=== PATIENT | male | born 1940 | race Caucasian/White ===

== ENCOUNTER → 2020-01-20 12:56 | Outpatient (CLI) | payer MEDICARE, MEDICAID, SELFPAY ==
--- NOTE | 2020-01-20 13:05 | SP.MBSS_ITS ---
PRIMARY / SECONDARY DIAGNOSIS: dysphagia (R13.10) CURRENT DIET (SOLIDS): regular textures (IDDSI: 7) CURRENT DIET (LIQUIDS): thin liquid diets (IDDSI: 0) DENTITION: natural upper / lower dentition MENTAL STATUS: sufficient for participation RESPIRATORY STATUS: O2 via room air CURRENT FUNCTIONAL AMBULATION CATEGORY (FAC): 5 (ambulator- independent) REASON FOR REFERRAL: The Patient is an 79 year old male referred for a modified barium swallow (MBS) study to objectively assess the Patients oropharyngeal swallow function under fluoroscopy secondary to reported persistent globus sensation with occasional regurgitation during ingestion of solid textures (particularly breads) with occasional symptomology with thin liquids, stating that he has noticed he requires a substantial longer duration of ingestion over the past few years. 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 PREVIOUS MODIFIED BARIUM SWALLOW STUDY RESULTS: None ASSESSMENT PARAMETERS: The Patient participated in a Modified Barium Swallow (MBS) study on 01/20/2020. This study was recorded in the lateral view and images were sent to PACs for storage. Scoring was completed through each trial using the 8- point Penetration-Aspiration Scale (PAS) and summarized via the Modified Barium Swallow Impairment Profile (MBSImP) and the Bolus Residue Scale (BRS), with severity scoring through the Swallowing Performance Scale (SPS) and the Dysphagia Classification Scale (DCS), and recommended diet textures through the International Dysphagia Diet Standardisation Initiative (IDDSI) RESULTS OF THE EVALUATION: The Patient presents with mild to moderate oropharyngeal dysphagia (SPS: 4; DCS: D1) with shallow penetration and incomplete ejection during thin and nectar thickened liquid ingestion; abnormal esophageal phase findings likely indicating achalasia. OBJECTIVE ASSESSMENT OF SWALLOW FUNCTION (QUANTITATIVE ? PER TRIAL): PENETRATION / ASPIRATION SCALE (ROCK): 1 = does not enter airway 2 = enters airway/above vocal folds/ejected 3 = enters airway/above vocal folds/not ejected 4 = enters airway/contacts vocal folds/ejected 5 = enters airway/contacts vocal folds/not ejected 6 = enters airway/below vocal folds/ejected 7 = enters airway/below vocal folds/not ejected despite effort 8 = enters airway/below vocal folds/no effort PENETRATION / ASPIRATION SCALE (SCORE): Thin liquid - 5 mL tsp.: 1 Thin liquids via cup (single sip): 3 Thin liquids via cup (single sip): 3 Thin liquids via cup (sequential swallows): 3 Pudding via spoon: 1 Regular textured cookie: 1 Thin liquids via straw (chin tuck): 3 Thin liquids via straw (chin tuck): 3 Thin liquids via straw (chin tuck): 3 [place] thickened liquids via straw (single sip): 3 [place] thickened liquids via straw (single sip): 3 OBJECTIVE ASSESSMENT OF SWALLOW FUNCTION (QUANTITATIVE ? AGGREGATE): MODIFIED BARIUM SWALLOW IMPAIRMENT PROFILE (MBSImP) LABIAL SEAL: 0 (of 4) no labial escape TONGUE CONTROL: 2 (of 3) posterior escape < 50% BOLUS PREPARATION / MASTICATION: 0 (of 3) timely and efficient BOLUS TRANSPORT / LINGUAL MOTION: 0 (of 4) brisk tongue motion ORAL RESIDUE: 1 (of 4) trace residue lining oral structures INITIATION OF PHARYNGEAL SWALLOW: 3 (of 4) pyriforms SOFT PALATE ELEVATION: 0 (of 4) no bolus between soft palate & pharyngeal wall LARYNGEAL ELEVATION: 1 (of 3) partial superior movement / approximation ANTERIOR HYOID EXCURSION: 1 (of 2) partial movement EPIGLOTTIC MOVEMENT: 1 (of 2) partial inversion LARYNGEAL VESTIBULE CLOSURE: 1 (of 2) incomplete closure PHARYNGEAL STRIPPING WAVE: 1 (of 2) present / diminished PE SEGMENT OPENIN (of 3) partial distension / duration / obstruction TONGUE BASE RETRACTION: 2 (of 4) narrow column of contrast PHARYNGEAL RESIDUE: 2 (of 4) collection of residue ESOPHAGEAL BOLUS CLEARANCE: 2 (of 4) esophageal retention with retrograde flow below pharyngoesophageal segment (PES) BOLUS RESIDUE SCALE (BRS): BRS SCORE: 3 (of 6) BRS SCORE DESCRIPTION: residue on the posterior pharyngeal wall OBJECTIVE ASSESSMENT OF SWALLOW FUNCTION (SEVERITY GRADING): SWALLOWING PERFORMANCE SCALE (SPS): SPS CLASSIFICATION: 4 (mild to moderate) SPS CLASSIFICATION CHARACTERISTICS: mild-moderate impairment with need for therapeutic precautions: mild dysfunction in oral and pharyngeal stage; requires modified diet and therapeutic precautions to minimize aspiration risk DYSPHAGIA CLASSIFICATION SCALE (DCS): DCS CLASSIFICATION: D1 (mild) DCS CLASSIFICATION CHARACTERISTICS: mild stasis, without food consistency restriction OBJECTIVE ASSESSMENT OF SWALLOW FUNCTION (QUALITATIVE): ORAL PREPARATORY PHASE: competent bolus manipulation without fragmented swallowing (piecemeal deglutition); sufficient anterior oral containment during oral manipulation; preserved management of breathing / bolus formation. ORAL TRANSITIONAL PHASE: sufficient bolus transportation; no lingual discoordination (no tremor / undulations); intermittent piecemeal deglutition with eventual sufficient oral clearance; intermittent premature posterior bolus loss complicating pharyngeal phase synchrony, presenting as a contributor to pre-prandial penetration. PHARYNGEAL PHASE: varied pharyngeal phase dyssynchrony resulting in pre- prandial penetration of all liquid viscosities, unresponsive to posture / compensatory strategy implementation; reduced hyolaryngeal excursion with suboptimal laryngeal vestibule closure and insufficient laryngeal vestibule pressure generated to completely expel penetrated material; rather mild pharyngeal dysmotility most prominently with thicker viscosities with consolidation within the lower pharyngeal space attributed to a combination reduced posterior pharyngeal stripping wave action, and inconsistent and incomplete epiglottic deflection; appropriate velopharyngeal functioning; ESOPHAGEAL PHASE: abnormal esophageal phase findings, with copious retention and delayed clearance marked by abnormal peristalsis and intermittent tertiary contractions, with incomplete lower esophageal relaxation presenting as a ?birds beak? appearance at the distal esophagus / gastroesophageal junction suggesting achalasia; findings collaborate with reported symptomology. CONTRIBUTING / COMPLICATING FACTORS AND NOTABLE FINDINGS: noted smaller cervical osteophyte located at the C-5 C-6 level. RESPONSE TO STRATEGIES: all deficits somewhat managed via reduction in bolus rate / volume adjustments (beneficial for esophageal phase findings), though overall insufficient effects were noted from a variety of compensatory strategies implemented across studies, INTERVENTION RECOMMENDATIONS AND CONSIDERATIONS: Given the presence of esophageal phase abnormalities that closely resemble achalasia, I would suggest referring the patient for further workup via gastroenterology, with likely esophageal manometry indicated. INTERVENTION RECOMMENDATIONS AND CONSIDERATIONS: I would further consider additional outpatient speech-language intervention targeting diet texture management and training / implementation of recommended compensatory strategies; with consideration for training and implementation of recommended oropharyngeal strengthening exercises to facilitate improved laryngeal valving and pharyngeal motility (specifically targeting the effects of incomplete epiglottic deflection); with continual Patient education regarding dyspahagia and aspiration risks, and further education and non-surgical management considerations targeting achalasia to further augment any primary approaches advanced by the care team, as non- surgical management may not be indicated in isolation. I would further recommend providing additional information regarding the Patients past medical history prior to further workup, as it seems like there is potentially critical information to this case than he is unable to provide. POST ASSESSMENT EDUCATION: The results and recommendations were discussed with the Patient immediately following MBS completion, with the Patient verbalizing understanding and agreement with all recommendations and education provided, though follow up education sessions are likely indicated. DIET TEXTURE RECOMMENDATIONS: Will recommend a regular ? soft textured (IDDSI: 6), thin liquid diet (IDDSI: 0) diet RECOMMENDED COMPENSATORY STRATEGIES: Reduced bolus volume / rate of ingestion (paramount), increasing water intake with meals, avoiding eating near bedtime, avoiding foods that aggravate reflux, consider cutting tougher textures into bite sized pieces, seated upright at 90 degrees during PO intake, remain upright for 60 minutes post meal IMAGE COUNT: [id number] Sae Mckay M.A., [employer], CBIS MBSImP Certified, LSVT Certified [facility] Speech-Language Pathology Department Email: [email or web address]
== END ==
DX: R13.10 Dysphagia, unspecified (principal)
CPT/HCPCS: 74230; 92611

== ENCOUNTER → 2020-01-23 14:00 | Outpatient (CLI) | payer MEDICARE, MEDICAID, SELFPAY ==
[2013-08-30 21:21] VITALS: BMI 34.2
[2020-01-23 16:00] LABS: Anion Gap 5 (5-15); BUN 39 mg/dL (7-18); BUN/Creat Ratio 25.8 RATIO (10-20); Calcium,Total 8.8 mg/dL (8.5-10.1); Chloride 109 mmol/L (98-107); Creatinine, Serum 1.51 mg/dL (0.70-1.30); EST Glomerular Filtration Rate 48 mL/min (>60); Est Glom Filt Rate - Afr Amer 57 mL/min (>60); Glucose 142 mg/dL (74-106); Potassium 4.9 mmol/L (3.5-5.1); Sodium Level 140 mmol/L (136-145)
== END ==
PROVIDERS: Visit Provider Internal Medicine Nephrology
DX: E87.5 Hyperkalemia (principal)
CPT/HCPCS: 36415; 80048

== ENCOUNTER → 2020-01-30 09:32 | Outpatient (CLI) | payer MEDICARE, MEDICAID, SELFPAY ==
--- NOTE | 2020-01-30 09:34 | US_ITS ---
STUDY: RENAL ULTRASOUND - COMPLETE REASON FOR EXAM: Male, 79 years old. CKD 3 TECHNIQUE: Ultrasound evaluation of the kidneys was performed with real-time and static dennison-scale imaging. COMPARISON: None. FINDINGS: RIGHT KIDNEY: Normal location of the right kidney, which is normal in size. The right kidney measures 11.2 Jaret by 5 cm x 5 cm. There is a normal cortex of the right kidney. The renal cortex measures 1.2 cm. Multiple cysts are seen. The largest measures 1.5 cm x 1.4 cm x 1.4 cm. There are no right renal calculi. There is no right hydronephrosis. DISTAL RIGHT URETER: There is non-visualization of the distal right ureter. There is no demonstrated right ureterovesical junction calculus. There is no demonstrated right ureteral jet. LEFT KIDNEY: Normal location of the left kidney, which is normal in size. The left kidney measures 12.9 cm x 5.3 cm x 5.4 cm. There is a normal cortex of the left kidney. The renal cortex measures 1.4 cm. Multiple cysts are seen. The largest measures 7 cm x 7.3 cm x 6.9 cm There are no left renal calculi. There is no left hydronephrosis. DISTAL LEFT URETER: There is non-visualization of the distal left ureter. There is no demonstrated left ureterovesical junction calculus. There is no demonstrated left ureteral jet. AORTA: There is no elongation or tortuosity of the abdominal aorta. Aorta measures: Proximal cm. Middle cm. Distal cm. Aorta measure transversely: Proximal cm. Middle cm. Distal cm. There is no demonstrated aneurysm.. I.V.C.: The IVC is patent. BLADDER: The bladder as a trabeculated wall. US/Kidney and Bladder IMPRESSION: Multiple bilateral renal cysts as described. Trabeculation of the urinary bladder wall. Electronically Signed: Mario Alberto Ken, at 13:18 EDT , Service support ,
== END ==
PROVIDERS: Referring Provider Internal Medicine Nephrology; Visit Provider Internal Medicine Nephrology
DX: N18.3 Chronic kidney disease, stage 3 (moderate) (principal)
CPT/HCPCS: 76770

== ENCOUNTER 2020-02-19 10:55 | Day surgery (SDC) | payer MEDICARE, MEDICAID, SELFPAY ==
[2020-02-11 10:51] VITALS: BMI 31.3
--- NOTE | 2020-02-11 11:00 | HP_ITS ---
Intake Vital Signs 02/11/20 Height 5 ft 8 in 02/11/20 Weight: 206 lb 02/11/20 BMI 31.3 02/11/20 BP 131/72 H 02/11/20 Blood Pressure Location Rt brachial 02/11/20 Position Sitting 02/11/20 Respiration 18 02/11/20 Pulse 60 02/11/20 Pulse Source Monitor 02/11/20 Temp 98.2 F 02/11/20 Temp Source Temporal 02/11/20 Pulse Oximetry (%) 94 02/11/20 Oxygen Delivery Method room air Intake Visit Reasons: Esophagogastroduodenoscopy [employer] Planner Required: No Is patient in pain?: No Allergies No Known Allergies Allergy (Verified 02/11/20 10:52) Medications Escitalopram Oxalate [Lexapro] 20 mg PO DAILY 08/30/13 [History Confirmed 02/11/20] Hum Insulin NPH/Reg Insulin Hm [Humulin 70-30 Pen] 100 unit SQ 08/30/13 [History Confirmed 02/11/20] aspirin 81 mg tablet,delayed release 81 mg PO DAILY 02/11/20 [History Confirmed 02/11/20] losartan 50 mg tablet 50 mg PO DAILY tab 02/11/20 [History Confirmed 02/11/20] PFSH Medical History Hypertension (Chronic) Diabetes (Acute) Dysphagia (Acute) Hx of rheumatic fever (Acute) Surgical History Hx of tonsillectomy (Acute) Hx of colonoscopy (Acute) Family History Sister Arthritis Mother Arthritis Diabetes Father , AAA ruptured AAA (abdominal aortic aneurysm, ruptured) Social History (Updated 02/11/20 @ 11:[address] David Hendricks MD) Smoking Status: Current every day smoker tobacco type: cigarettes second hand exposure: Yes alcohol intake: never substance use type: does not use caffeine: Yes what type of physical activity do you participate in: none frequency: does not exercise seatbelt use: always HPI HPI Surgical H&P: Yes HPI: YUN GUTIERREZ, is a 79 M who presents to the office today for Evaluation of dysphagia. Patient has had problems with occasional regurgitation during indigestion of solid textures particularly bread. States that the back of his throat is always dry. Patient had a swallowing study which showed mild to moderate oropharyngeal dysphagia with swallow penetration and incomplete ejection during thin and nectar thickened liquids. It was abnormal esophageal phase findings likely indicating achalasia. ROS General General: No weight change, appetite, fatigue, colon cancer or breast cancer HEENT HEENT: Yes difficulty swallowing; no eye injury, eye surgery, swollen glands or hoarseness Endo Endocrine: Yes diabetes mellitus; no thyroid disease, thyroid cancer, Hair loss, heat intolerance or cold intolerance Skin Skin: No rash or changing moles Musc Musculoskeletal: Yes back problems and arthritis; no rheumatoid arthritis, gout or joint pain Cardio Cardiovascular: Yes high blood pressure; no murmur, pacemaker, heart disease, atrial fibrillation, heart attack, heart stent, palpitations, shortness of breat with exertion or chest pain Psych Psychiatric: No depression, anxiety or hearing voices Resp Respiratory: No shortness of breath, No sleep apnea, No cough, No COPD, No asthma, No emphysema, No wheezing Gastro Gastrointestinal: No abdominal pain, No nausea or vomiting, No diarrhea, No constipation, No blood in stool, No acid reflux, No hemorrhoids, No ulcers, No gallbladder problem, No black,tarry stools Guero Hematologic: No blood thinners, No blood disorders, No bleeding, No anemia, No blood clots Exam Const General: no acute distress, well developed, well hydrated Orientation: oriented to person, oriented to place, oriented to time [facility] Head: normocephalic, atraumatic Ears: external ears normal Mouth: moist mucous membranes Eyes Sclera: sclerae normal Pupils: normal by confrontation Neck Neck: no lymphadenopathy noted Neck mass: No Thyroid: thyroid normal, symmetrical Chest Chest palpation & inspection: normal inspection of the chest Resp Effort & Inspection: normal respiratory effort Auscultation: clear to auscultation bilaterally Percussion: percussion normal Cardio Rate: regular rate Rhythm: regular rhythm Heart Sounds: no murmurs GI Palpation: soft, no hepatosplenomegaly, no masses, nontender Rectal Exam: other Other: Rectal exam deferred. Extrem General: normal to inspection, no clubbing, cyanosis or edema Assessment & Plan Problems 1. Pharyngoesophageal dysphagia R13.14 Plan I have discussed the above with the patient. I have offered the patient esophagogastroduodenoscopy for evaluation. I have explained the risks/benefits of the procedure and described the procedure. I have discussed the risks with the patient, including but not limited to: infection, bleeding, perforation of the GI tract requiring emergency surgery, inability to complete the procedure, injury to any internal organs, complications of anesthesia, etc. - the patient understands and agrees to proceed. I have answered all the patient's questions to the patient's satisfaction and the patient has no further questions. The patient has been given instructions for the colon cleansing preparation. We will also obtain esophageal manometry after EGD is completed. Coding Level of Care Code Off vis,new,level 3 Diagnoses Pharyngoesophageal dysphagia R13.14 ??Dysphagia type: pharyngoesophageal phase COVID (Procedure Consent) Procedure Criteria Procedure Criteria: Yes Elective The surgeon/proceduralist and patient have discussed in detail the risk of exposure to and/or potential harm posed by the COVID-19 virus with having a surgery/procedure at this time versus the risk of? delaying the surgery/procedure. It is not possible to know either the risk of delaying the surgery or procedure or chance of getting an infection with perfect accuracy, but a joint decision was made between the patient and the surgeon/proceduralist ?to proceed at this time with the scheduled surgery/procedure as indicated on the consent form. 02/11/20 1117 <Electronically signed by David mantilla MD> Date _ David Hendricks MD I have re-examined the patient. There are no clinical changes since date of exam.
[2020-02-19] VITALS (9 sets, daily range): BP systolic 125–152; BP diastolic 59–76; PULSE 62–67; RESP 16–18; TEMP 36–36.8; O2SAT 93–99; BMI 30.7
[2020-02-19 11:45] LABS: Bedside Glucose 171 mg/dL (70-110)
--- NOTE | 2020-02-19 12:15 | IMM_PTH ---
PATIENT: YUN GUTIERREZ LOC: EN U#:[id number] AGE/SX: 79/M ROOM: RE02/19/[address]: Dr. David Hendricks MD : 1940 BED: DIS: 02/19/2020 SPEC #: [id number] RECD: 02/20/20 09:45 STATUS: JANIS REQ #: [id number] TAY: 02/19/20 12:[address]: David Hendricks DEPT: IMMUNOHISTOCHEMISTRY RECD BY: Monisha Baumann ENTERED: 02/20/20 09:46 SP TYPE: IMMUNO OTHR DR: Tanya Pollack, ZOO KEEPER-C [facility] Tissues: B - Stomach, NOS Procedures: H Pylori (initial) PHYSICIAN & INSTITUTION [place] [address] SPECIMEN INFORMATION: Tissue Source: B - Antral biopsy Clinical Info: Dysphagia Specimen Number: [id number] CPT code: 57851 METHODOLOGY: Deparaffinized sections of prefer/formalin-fixed tissue or PAP/DQ stained slides are incubated with monoclonal/polyclonal antibodies/oligonucleotide probes. Localization is made via biotin free immunoperoxidase method. Appropriate controls are performed and reacted as expected. Results on target cell population are indicated in the following table: RESULTS: ANTIBODY / CLONE RESULT Block B H Pylori (polyclonal) negative These tests were developed and their performance characteristics determined by [facility]. They may not have been cleared or approved by the U.S. Food and Drug Administration. The FDA has determined that such clearance or approval is not necessary. INTERPRETATION: B. Antral biopsy: Negative for Helicobacter pylori organisms. AM:elly 02/21/20
--- NOTE | 2020-02-19 12:15 | EGD_PTH ---
PATIENT: YUN GUTIERREZ LOC: EN U#:[id number] AGE/SX: 79/M ROOM: RE02/19/[address]: Dr. David Hendricks MD : 1940 BED: DIS: 02/19/2020 SPEC #: [id number] RECD: 02/19/20 15:16 STATUS: JANIS ADAM #: [id number] TAY: 02/19/20 12:[address]: David Hendricks DEPT: SURGICAL PATHOLOGY RECD BY: James Dolan ENTERED: 02/20/20 09:33 SP TYPE: EGD BIOPSY OT DR: Tanya Pollack, USER INTERFACE DEVELOPER-C [facility] Tissues: A - Duodenum, NOS B - Gastric mucous membrane Procedures: Surgery Specimen Level IV HEADER OPERATION: EGD ([facility] [place]) PRE-OP DIAGNOSIS: Dysphagia TISSUE SUBMITTED: A - Duodenal biopsy, B - Antral biopsy for H. pylori and pathology MICROSCOPIC DIAGNOSIS A. Duodenum, biopsy: Fragments of benign superficial glandular mucosa. No evidence of inflammation. B. Gastric antrum, biopsy: Mild chronic gastritis. See comment. AM:elly 02/21/20 COMMENT B. The results of immunohistochemistry for Helicobacter pylori will be reported separately ([id number]). MICROSCOPIC DESCRIPTION Slides are reviewed. GROSS DESCRIPTION A - Received in fixative is one container labeled with the patient's name and designated duodenum biopsy. The specimen consists of one irregular fragment of light mckee soft tissue that measures 0.2 x 0.1 x 0.1 cm. The specimen is totally submitted in one cassette. B - Received in fixative is one container labeled with the patient's name and designated antral biopsy. The specimen consists of one irregular fragment of light mckee soft tissue that measures 0.4 x 0.3 x 0.1 cm. The specimen is totally submitted in one cassette. / SJ:elly 02/20/20 TC:3 CPT: 79516 x2
[2020-02-19] MEDS: Lactated Ringers 1,000 ML 100 ML IV (12:26)
--- NOTE | 2020-02-19 12:53 | OP.CCLET_ITS ---
02/19/2020 [facility] Re : Upper GI endoscopy procedure for Son Lundy [facility] This procedure was performed on Wednesday, February 19, 2020. My impressions and recommendations are as follows: Impressions : - Tortuous esophagus. - Gastritis. Biopsied. - Duodenitis. Biopsied. Recommendations : - Await pathology results. - Repeat upper endoscopy (date not yet determined) for surveillance. - Return to my office in 1 week. - Continue present medications. My findings are described in the full procedure note, which is enclosed. If I can be of further assistance, please feel free to contact me at Doctor phone number(s): , Fax: [phone], Work: . Sincerely, MD David Menon MD 02/19/2020 12:52:42 PM This report has been signed electronically.
--- NOTE | 2020-02-19 12:53 | OP.EGD_ITS ---
Patient Name: Son Lundy Procedure Date: 02/19/2020 12:10 PM Date of : 1940 Age: 79 Procedure: Upper GI endoscopy Indications: Pharyngeal phase dysphagia Providers: David Hendricks MD Referring MD: L[facility] Santana [facility] Medicines: See the Anesthesia note for documentation of the administered medications Patient Profile: This is an 79 year old male. Refer to note in patient chart for documentation of history and physical. Complications: No immediate complications. Procedure: Pre-Anesthesia Assessment: - Prior to the procedure, a History and Physical was performed, and patient medications and allergies were reviewed. The patient's tolerance of previous anesthesia was also reviewed. The risks and benefits of the procedure and the sedation options and risks were discussed with the patient. All questions were answered, and informed consent was obtained. Prior Anticoagulants: The patient has taken aspirin, last dose was 7 days prior to procedure. ASA Grade Assessment: III - A patient with severe systemic disease. After reviewing the risks and benefits, the patient was deemed in satisfactory condition to undergo the procedure. After obtaining informed consent, the endoscope was passed under direct vision. Throughout the procedure, the patient's blood pressure, pulse, and oxygen saturations were monitored continuously. The gastroscope was introduced through the mouth, and advanced to the third part of duodenum. The upper GI endoscopy was accomplished without difficulty. The patient tolerated the procedure well. Scope In: 12:26:42 PM Scope Out: 12:34:31 PM Total Procedure Duration Time 0 hours 7 minutes 49 seconds Findings: The examined esophagus was mildly tortuous. No biopsies or other specimens were collected for this exam. Diffuse mild inflammation characterized by congestion (edema) and erythema was found in the entire examined stomach. Biopsies were taken with a cold forceps for Helicobacter pylori testing. Localized mild inflammation characterized by erythema and friability was found in the duodenal bulb. Biopsies were taken with a cold forceps for histology. Impression: - Tortuous esophagus. - Gastritis. Biopsied. - Duodenitis. Biopsied. Recommendation: - Await pathology results. - Repeat upper endoscopy (date not yet determined) for surveillance. - Return to my office in 1 week. - Continue present medications. Procedure Code(s): --- Professional --- 16013, Esophagogastroduodenoscopy, flexible, transoral; with biopsy, single or multiple Diagnosis Code(s): --- Professional --- Q39.9, Congenital malformation of esophagus, unspecified K29.70, Gastritis, unspecified, without bleeding K29.80, Duodenitis without bleeding R13.13, Dysphagia, pharyngeal phase CPT copyright 2017 [employer]. All rights reserved. The codes documented in this report are preliminary and upon photoengraving retoucher review may be revised to meet current compliance requirements. MD David Menon MD 02/19/2020 12:52:42 PM This report has been signed electronically. Number of Addenda: 0 Note Initiated On: 02/19/2020 12:10 PM
== END 2020-02-19 14:07 | disposition home or self-care (01) ==
LOC: EN 10:57 → AC 11:48
PROVIDERS: Anesthesiology; Visit Provider Surgery
PROC: 0DJ08ZZ Inspection of Upper Intestinal Tract, Via Natural or Artificial Opening Endoscopic (ICD-10-PCS; CPT 43235; principal; 2020-02-19 12:10)
DX: K29.50 Unspecified chronic gastritis without bleeding (principal); R13.13 Dysphagia, pharyngeal phase; R13.12 Dysphagia, oropharyngeal phase; R13.14 Dysphagia, pharyngoesophageal phase; Q39.9 Congenital malformation of esophagus, unspecified; K29.70 Gastritis, unspecified, without bleeding; K29.80 Duodenitis without bleeding; Z79.4 Long term (current) use of insulin; Z79.82 Long term (current) use of aspirin; I10 Essential (primary) hypertension; F17.210 Nicotine dependence, cigarettes, uncomplicated; Z11.59 Encounter for screening for other viral diseases
CPT/HCPCS: 43239; 82962; 87635; 88305; 88342; G2023; J7120; J2405; U0003

== ENCOUNTER 2020-02-20 09:54 | Day surgery (SDC) | payer MEDICARE, MEDICAID, SELFPAY ==
[2020-02-11 10:51] VITALS: BMI 31.3
--- NOTE | 2020-02-11 11:00 | HP_ITS ---
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 Is patient in pain?: No Allergies No Known Allergies Allergy (Verified 02/11/20 10:52) Medications Escitalopram Oxalate [Lexapro] 20 mg PO DAILY 08/30/13 [History Confirmed 02/11/20] Hum Insulin NPH/Reg Insulin Hm [Humulin 70-30 Pen] 100 unit SQ 08/30/13 [History Confirmed 02/11/20] aspirin 81 mg tablet,delayed release 81 mg PO DAILY 02/11/20 [History Confirmed 02/11/20] losartan 50 mg tablet 50 mg PO DAILY tab 02/11/20 [History Confirmed 02/11/20] PFSH Medical History Hypertension (Chronic) Diabetes (Acute) Dysphagia (Acute) Hx of rheumatic fever (Acute) Surgical History Hx of tonsillectomy (Acute) Hx of colonoscopy (Acute) Family History Sister Arthritis Mother Arthritis Diabetes Father , AAA ruptured AAA (abdominal aortic aneurysm, ruptured) Social History (Updated 02/11/20 @ 11:[address] David Hendricks MD) Smoking Status: Current every day smoker tobacco type: cigarettes second hand exposure: Yes alcohol intake: never substance use type: does not use caffeine: Yes what type of physical activity do you participate in: none frequency: does not exercise seatbelt use: always HPI HPI HPI: YUN GUTIERREZ, is a 79 M who presents to the office today for HPI HPI Surgical H&P: Yes HPI: YUN GUTIERREZ, is a 79 M who presents to the office today for Evaluation of dysphagia. Patient has had problems with occasional regurgitation during indigestion of solid textures particularly bread. States that the back of his throat is always dry. Patient had a swallowing study which showed mild to moderate oropharyngeal dysphagia with swallow penetration and incomplete ejection during thin and nectar thickened liquids. It was abnormal esophageal phase findings likely indicating achalasia. ROS General General: No weight change, appetite, fatigue, colon cancer or breast cancer HEENT HEENT: Yes difficulty swallowing; no eye injury, eye surgery, swollen glands or hoarseness Endo Endocrine: Yes diabetes mellitus; no thyroid disease, thyroid cancer, Hair loss, heat intolerance or cold intolerance Skin Skin: No rash or changing moles Musc Musculoskeletal: Yes back problems and arthritis; no rheumatoid arthritis, gout or joint pain Cardio Cardiovascular: Yes high blood pressure; no murmur, pacemaker, heart disease, atrial fibrillation, heart attack, heart stent, palpitations, shortness of breat with exertion or chest pain Psych Psychiatric: No depression, anxiety or hearing voices Resp Respiratory: No shortness of breath, No sleep apnea, No cough, No COPD, No asthma, No emphysema, No wheezing Gastro Gastrointestinal: No abdominal pain, No nausea or vomiting, No diarrhea, No constipation, No blood in stool, No acid reflux, No hemorrhoids, No ulcers, No gallbladder problem, No black,tarry stools Guero Hematologic: No blood thinners, No blood disorders, No bleeding, No anemia, No blood clots Exam Const General: no acute distress, well developed, well hydrated Orientation: oriented to person, oriented to place, oriented to time [facility] Head: normocephalic, atraumatic Ears: external ears normal Mouth: moist mucous membranes Eyes Sclera: sclerae normal Pupils: normal by confrontation Neck Neck: no lymphadenopathy noted Neck mass: No Thyroid: thyroid normal, symmetrical Chest Chest palpation & inspection: normal inspection of the chest Resp Effort & Inspection: normal respiratory effort Auscultation: clear to auscultation bilaterally Percussion: percussion normal Cardio Rate: regular rate Rhythm: regular rhythm Heart Sounds: no murmurs GI Palpation: soft, no hepatosplenomegaly, no masses, nontender Rectal Exam: other Other: Rectal exam deferred. Extrem General: normal to inspection, no clubbing, cyanosis or edema Assessment & Plan Problems 1. Pharyngoesophageal dysphagia R13.14 Plan I have discussed the above with the patient. I have offered the patient esophagogastroduodenoscopy for evaluation. I have explained the risks/benefits of the procedure and described the procedure. I have discussed the risks with the patient, including but not limited to: infection, bleeding, perforation of the GI tract requiring emergency surgery, inability to complete the procedure, injury to any internal organs, complications of anesthesia, etc. - the patient understands and agrees to proceed. I have answered all the patient's questions to the patient's satisfaction and the patient has no further questions. The patient has been given instructions for the colon cleansing preparation. We will also obtain esophageal manometry after EGD is completed. Coding Level of Care Code Off vis,new,level 3 Diagnoses Pharyngoesophageal dysphagia R13.14 ??Dysphagia type: pharyngoesophageal phase COVID (Procedure Consent) Procedure Criteria Procedure Criteria: Yes Elective The surgeon/proceduralist and patient have discussed in detail the risk of exposure to and/or potential harm posed by the COVID-19 virus with having a surgery/procedure at this time versus the risk of? delaying the surgery/procedure. It is not possible to know either the risk of delaying the surgery or procedure or chance of getting an infection with perfect accuracy, but a joint decision was made between the patient and the surgeon/proceduralist ?to proceed at this time with the scheduled surgery/procedure as indicated on the consent form. 02/11/20 1117 <Electronically signed by David mantilla MD> Date _ David Hendricks MD
[2020-02-19 11:31] VITALS: BMI 30.7
[2020-02-20 10:11] VITALS: BP 131/74; PULSE 65; RESP 18; TEMP 36.8; O2SAT 94
== END 2020-02-20 10:53 | disposition home or self-care (01) ==
LOC: EN 09:55
PROVIDERS: Surgery; Referring Provider Nurse Practitioner Family; Visit Provider Surgery
PROC: F00ZJWZ Instrumental Swallowing and Oral Function Assessment using Swallowing Equipment (ICD-10-PCS; CPT 43235; principal; 2020-02-20 09:55)
DX: R13.12 Dysphagia, oropharyngeal phase (principal); R13.14 Dysphagia, pharyngoesophageal phase; F17.210 Nicotine dependence, cigarettes, uncomplicated; Z79.4 Long term (current) use of insulin; Z79.82 Long term (current) use of aspirin; I10 Essential (primary) hypertension; E11.9 Type 2 diabetes mellitus without complications
CPT/HCPCS: 91010

== ENCOUNTER → 2020-03-25 08:55 | Outpatient (CLI) | payer MEDICARE, MEDICAID, SELFPAY ==
[2020-03-09 09:33] VITALS: BMI 30.7
[2020-03-25 09:41] LABS: Absolute Lymphocyte Count 1.52 X10^3/uL (0.83-4.51); Absolute Neutrophil Count 7.2 X10^3/uL (2.0-7.7); Basophil# 0.07 X10^3/uL; Basophil% 0.7 % (0-1); Eosinophil# 0.52 X10^3/uL; Eosinophils% 4.9 % (0-5); Hematocrit 46.5 % (40-54); Hemoglobin 14.4 g/dL (13.0-16.5); Lymphocyte # 1.52 X10^3/ul (4.0); Lymphocyte % 14.2 % (19-41); Mean Corpuscular Hgb 28.2 pg (27.0-32.0); Mean Corpuscular Volume 91.2 fL (80-94); Mean Platelet Vol. 10.4 fl (6.2-12.0); Monocyte# 1.36 X10^3/uL; Monocyte% 12.7 % (0-10); NRBC Flagged by Analyzer 0 % (0-5); Neutrophil # 7.19 X10^3/uL (2.7-7.7); Neutrophil % 67.3 % (47-70); Platelet Count 283 K/mm3 (150-450); RBC Distribution Width CV 17.2 % (11.6-14.6); RBC Distribution Width SD 58.2 fl (35.1-43.9); White Blood Count 10.7 K/mm3 (4.4-11.0)
[2020-03-25 10:01] LABS: Hemoglobin A1c 8.5 % (3.8-5.6)
[2020-03-25 10:15] LABS: ALB/GLOB Ratio 0.7 RATIO (0.9-2.4); AST(SGOT) 10 U/L (15-37); Alanine Aminotransfer ALT/SGPT 14 U/L (16-61); Albumin, Serum 3.1 g/dL (3.2-5.0); Alkaline Phosphatase 95 U/L (45-117); Anion Gap 2 (5-15); BUN 33 mg/dL (7-18); BUN/Creat Ratio 24.4 RATIO (10-20); Calcium,Total 8.8 mg/dL (8.5-10.1); Chloride 105 mmol/L (98-107); Cholesterol 109 mg/dL (200); Creatinine, Serum 1.35 mg/dL (0.70-1.30); EST Glomerular Filtration Rate 54 mL/min (>60); Est Glom Filt Rate - Afr Amer 65 mL/min (>60); Globulin 4.3 g/dL (2.2-4.2); Glucose 153 mg/dL (74-106); High Density Lipoprotein 33 mg/dL; Potassium 4.8 mmol/L (3.5-5.1); Protein, Total 7.4 g/dL (6.4-8.2); Sodium Level 141 mmol/L (136-145); Triglycerides 101 mg/dL; Very Low Density Lipoprotein 20 mg/dL (5-40); Vitamin D,25 Hydroxy 37.7 ng/mL
== END ==
PROVIDERS: Referring Provider Nurse Practitioner Family; Visit Provider Nurse Practitioner Family
DX: E11.9 Type 2 diabetes mellitus without complications (principal); E78.2 Mixed hyperlipidemia; E55.9 Vitamin D deficiency, unspecified; I10 Essential (primary) hypertension
CPT/HCPCS: 36415; 80053; 80061; 82306; 83036; 85025

== ENCOUNTER → 2020-06-30 08:40 | Outpatient (CLI) | payer MEDICARE, MEDICAID, SELFPAY ==
[2020-03-09 09:33] VITALS: BMI 30.7
[2020-06-30 09:37] LABS: Absolute Lymphocyte Count 1.54 X10^3/uL (0.83-4.51); Absolute Neutrophil Count 6.2 X10^3/uL (2.0-7.7); Basophil# 0.06 X10^3/uL; Basophil% 0.6 % (0-1); Eosinophil# 0.46 X10^3/uL; Eosinophils% 4.9 % (0-5); Hematocrit 50.1 % (40-54); Hemoglobin 15.6 g/dL (13.0-16.5); Lymphocyte # 1.54 X10^3/ul (4.0); Lymphocyte % 16.4 % (19-41); Mean Corp Hgb Conc 31.1 g/dL (32-36); Mean Corpuscular Hgb 28.4 pg (27.0-32.0); Mean Corpuscular Volume 91.1 fL (80-94); Mean Platelet Vol. 9.9 fl (6.2-12.0); Monocyte# 1.08 X10^3/uL; Monocyte% 11.5 % (0-10); NRBC Flagged by Analyzer 0 % (0-5); Neutrophil # 6.22 X10^3/uL (2.7-7.7); Neutrophil % 66.3 % (47-70); Platelet Count 290 K/mm3 (150-450); RBC Distribution Width CV 16.6 % (11.6-14.6); RBC Distribution Width SD 55.2 fl (35.1-43.9); White Blood Count 9.4 K/mm3 (4.4-11.0)
[2020-06-30 10:00] LABS: ALB/GLOB Ratio 0.7 RATIO (0.9-2.4); AST(SGOT) 9 U/L (15-37); Alanine Aminotransfer ALT/SGPT 20 U/L (16-61); Albumin, Serum 3.4 g/dL (3.2-5.0); Alkaline Phosphatase 118 U/L (45-117); Anion Gap 2 (5-15); BUN 42 mg/dL (7-18); BUN/Creat Ratio 30.9 RATIO (10-20); Calcium,Total 9.4 mg/dL (8.5-10.1); Chloride 106 mmol/L (98-107); Cholesterol 131 mg/dL (200); Creatinine, Serum 1.36 mg/dL (0.70-1.30); EST Glomerular Filtration Rate 54 mL/min (>60); Est Glom Filt Rate - Afr Amer 65 mL/min (>60); Globulin 4.8 g/dL (2.2-4.2); Glucose 129 mg/dL (74-106); High Density Lipoprotein 38 mg/dL; Potassium 4.9 mmol/L (3.5-5.1); Protein, Total 8.2 g/dL (6.4-8.2); Sodium Level 140 mmol/L (136-145); Triglycerides 117 mg/dL; Very Low Density Lipoprotein 23 mg/dL (5-40)
== END ==
DX: E13.21 Other specified diabetes mellitus with diabetic nephropathy (principal); I10 Essential (primary) hypertension; E78.2 Mixed hyperlipidemia; E55.9 Vitamin D deficiency, unspecified; D50.9 Iron deficiency anemia, unspecified
CPT/HCPCS: 36415; 80053; 80061; 82306; 83036; 85025

== ENCOUNTER → 2020-10-22 10:43 | Outpatient (CLI) | payer MEDICARE, MEDICAID, SELFPAY ==
[2020-03-09 09:33] VITALS: BMI 30.7
[2020-10-22 12:22] LABS: Erythrocyte Sedimentation Rate 43 mm/hr (0-20)
[2020-10-22 12:24] LABS: Protein:Creat Ratio 1913 mg/g CRE (0-200)
[2020-10-22 12:32] LABS: Hemoglobin A1c 6.6 % (3.8-5.6)
[2020-10-22 12:39] LABS: PTHIN 207.8 pg/mL (18.4-80.1)
[2020-10-22 12:49] LABS: Vitamin D,25 Hydroxy 38.1 ng/mL
[2020-10-22 12:51] LABS: ALB/GLOB Ratio 0.7 RATIO (0.9-2.4); AST(SGOT) 18 U/L (15-37); Alanine Aminotransfer ALT/SGPT 18 U/L (16-61); Albumin, Serum 3.4 g/dL (3.2-5.0); Alkaline Phosphatase 109 U/L (45-117); Anion Gap 5 (5-15); BUN 32 mg/dL (7-18); BUN/Creat Ratio 21.1 RATIO (10-20); CPK Total, Creatine Kinase 61 U/L (39-308); Chloride 103 mmol/L (98-107); Creatinine, Serum 1.52 mg/dL (0.70-1.30); EST Glomerular Filtration Rate 47 mL/min (>60); Est Glom Filt Rate - Afr Amer 57 mL/min (>60); Globulin 4.6 g/dL (2.2-4.2); Glucose 108 mg/dL (74-106); Phosphorus 3.6 mg/dL (2.5-4.9); Potassium 4.6 mmol/L (3.5-5.1); Sodium Level 141 mmol/L (136-145)
== END ==
PROVIDERS: Referring Provider Family Medicine; Visit Provider Internal Medicine Nephrology
DX: E11.21 Type 2 diabetes mellitus with diabetic nephropathy (principal); R53.1 Weakness; N18.30 Chronic kidney disease, stage 3 unspecified; E11.22 Type 2 diabetes mellitus with diabetic chronic kidney disease; E55.9 Vitamin D deficiency, unspecified
CPT/HCPCS: 36415; 80053; 82306; 82550; 82570; 83036; 83970; 84100; 84156; 85652; 86140

== ENCOUNTER 2020-10-25 08:52 | Emergency (ER) | payer MEDICARE, MEDICAID, SELFPAY ==
[2020-03-09 09:33] VITALS: BMI 30.7
[2020-10-25 08:54] VITALS: BP 164/85; PULSE 81; RESP 16; TEMP 36.6; BMI 31.3
--- NOTE | 2020-10-25 09:13 | RAD_ITS ---
STUDY: X-RAY - LUMBAR SPINE REASON FOR EXAM: Male, 79 years old. Injury/Pain TECHNIQUE: 3 view(s) of the lumbar spine were obtained. COMPARISON: None FINDINGS: 3 views of the lumbar spine were obtained. Mild grade 1 anterolisthesis of L4 on L5. Stents facet arthrosis. Mild wedging of the lower thoracic vertebrae seen. Hypertrophy of this process processes. Anterior and posterior osteophytic spurring. Calcifications of the thoracic aorta IMPRESSION: Grade 1 anterolisthesis of L4 on L5 and extensive lumbar spondylotic changes. No convincing evidence for acute lumbar spine compression fractures. Electronically Signed: Cheikh Gomez MD at 10:47 EDT Tel , Service support , RAD/Lumbar Spine 2 or 3 Views
--- NOTE | 2020-10-25 09:13 | RAD_ITS ---
STUDY: X-RAY - THORACIC SPINE REASON FOR EXAM: Male, 79 years old. Injury/Pain TECHNIQUE: 3 view(s) of the thoracic spine were obtained. COMPARISON: None. FINDINGS: Accentuated thoracic kyphotic curvature. Anterior bridging osteophytes. Mild wedging of the thoracic vertebrae seen. No definite evidence for acute thoracic spine compression fractures. Multilevel facet arthrosis. Ankylosing of the thoracic spine seen. IMPRESSION: Thoracic spondylotic changes. No convincing evidence for acute thoracic spine compression fractures. Please consider CT examination of the thoracic spine if patient has midline tenderness Electronically Signed: Cheikh Gomez MD at 10:49 EDT Tel , Service support , RAD/Thoracic Spine 3 Views
[2020-10-25] MEDS: Ondansetron ODT 4 MG Tablet PO (09:53)
[2020-10-25] MEDS: fentaNYL 100 MCG/2 ML Ampul 50 MCG IM (09:53)
--- NOTE | 2020-10-25 11:04 | ED.VISSUMM ---
- ER Visit Summary Date of Service: 10/25/20 Chief Complaint: Back pain History of Present Illness: The patient is a 79 M who [facility] 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 States that he did not hit his head. No loss of consciousness. Is not on anticoagulants. He denies any neck, shoulder, wrist, or hip pain. Patient reports that over the past 9 days he thought his back was getting better. However, states his pain got much worse last night. Is a sharp pain is 10 of 10 severity. Is worsened by movement. Is taken Tylenol without relief. There is no radiation to his legs. No numbness or weakness in his legs. No problems with his bowels or his bladder. No groin numbness. Review of systems: General: No fever, chills, cold sweats. Cardiovascular: No chest pain, palpitations. Respiratory: No cough, shortness of breath, dyspnea on exertion. Gastrointestinal: No abdominal pain, nausea, vomiting, diarrhea, melena, or hematochezia. Genitourinary: No dysuria, frequency, hematuria. Skin: No rash. Neuro: No headache, numbness, weakness. Physical Examination: Vitals: Stable. Afebrile. Neck: No vertebral tenderness. Full ROM without difficulty. Cleared by NEXUS criteria. Back: Moderate tenderness palpation over the lower thoracic spine and mild tenderness palpation over the lumbar spine. This is diffuse. There is no point tenderness. Normal sensation to light touch. 5 out of 5 dorsiflexion, plantarflexion, extensor hallucis longus bilaterally. General: A&O x 3. NAD. Cardiovascular exam: Regular rate and rhythm, no murmur, rub or gallop. Respiratory exam: Chest nontender. No crepitus. Clear to auscultation bilaterally. No wheezes or stridor. Abdominal exam: Soft, nontender, nondistended, normal bowel sounds. No pain in RUQ or LUQ specifically. No peritoneal signs. Extremity: Atraumatic. No pain with range of motion. Test Results: Lumbar and thoracic spine x-ray shows degenerative changes but no acute fracture. Emergency Department Course and Treatment: Patient was given fentanyl IM and Zofran p.o. He is resting more comfortably. Treatment Plan: Patient feels well and would like to go home. He will be discharged with [place] and Colace. Instructed to follow-up the [facility] in 3 to 5 days if not improving. Return to the emergency department for any worsening symptoms. Disposition: To home in improved and stable condition. Impression: 1. Fall. 2. Thoracic strain. 3. Lumbar strain. This note was generated with [employer] dictation software. It may contain incorrect words, spelling, and punctuation that were not noted in review of the chart prior to signing ED Disposition - Plan for ED Patient: Instructions: ED Back Sprain/Strain Prescriptions: Docusate Sodium [Colace] 100 mg PO DAILY #20 capsule Hydrocodone Bitart/Apap 5-325 [[place] 5MG-325MG] 1 tablet PO Q4H PRN PRN 2 Days #10 tablet PRN Reason: Pain [facility] [Primary Care Provider] - 3-5 Days if not improving
[2020-10-25 11:31] VITALS: BP 129/71; PULSE 72; RESP 25; O2SAT 95
[2020-10-25] MEDS: HYDROcodone Bitartrate/Apap 5/325 Tablet PO (11:38)
[2020-10-25 11:41] VITALS: RESP 22; O2SAT 98
== END 2020-10-25 11:56 | disposition home or self-care (01) ==
PROVIDERS: Emergency Provider Emergency Medicine
DX: S39.012A Strain of muscle, fascia and tendon of lower back, initial encounter (principal); S29.012A Strain of muscle and tendon of back wall of thorax, initial encounter; W19.XXXA Unspecified fall, initial encounter; Y93.9 Activity, unspecified; Y92.89 Other specified places as the place of occurrence of the external cause; Y99.8 Other external cause status; E11.9 Type 2 diabetes mellitus without complications; I10 Essential (primary) hypertension; E78.00 Pure hypercholesterolemia, unspecified; F17.210 Nicotine dependence, cigarettes, uncomplicated
CPT/HCPCS: 72072; 72100; 96372; 99283

== ENCOUNTER 2020-11-07 14:35 | Emergency (ER) | payer MEDICARE, MEDICAID, SELFPAY ==
[2020-11-07] VITALS (12 sets, daily range): BP systolic 115–140; BP diastolic 58–91; PULSE 73–96; RESP 16–27; TEMP 36.6–37.2; O2SAT 84–94; BMI 30.4
--- NOTE | 2020-11-07 15:03 | CT_ITS ---
STUDY: CT ABDOMEN AND PELVIS WITH CONTRAST REASON FOR EXAM: Male, 80 years old. Left sided pain RADIATION DOSAGE (If Supplied By Facility): CTDIvol = ( 17.05 ) mGy, DLP = ( 1204.84 ) mGycm TECHNIQUE: Transaxial images were obtained from the dome of the diaphragm to the symphysis pubis without oral contrast. IV 75mL Isovue-370 was administered. Sagittal and coronal images were reconstructed. Individualized dose optimization techniques were used for this CT. COMPARISON: 01/30/2020 FINDINGS: Peribronchial consolidation involves the left lung base more than right lung base. Left hemidiaphragm is elevated. Coronary artery calcifications are present. No suspicious hepatic masses. Focal fatty infiltration adjacent to the falciform ligament and gallbladder fossa. Normal gallbladder and extrahepatic biliary system. Normal spleen. Normal pancreas. Low-density nodule in the left adrenal gland measures 9 mm compatible with a lipid rich adenoma. There are simple bilateral renal cysts without nodularity or septations (benign, simple; no imaging follow-up needed). Mild left hydronephrosis and hydroureter extends to the UVJ. No ureteral calcification. Normal visualized stomach. Normal small intestine. There is diverticulosis, with thickening of the distal descending colon wall (image 78 series 2), and pericolonic inflammation changes consistent with acute diverticulitis. There is non-visualization of the appendix. There is diffuse atherosclerotic calcification of the abdominal aorta, without a demonstrated aneurysm. Normal inferior vena cava. Normal retroperitoneum. Urinary bladder is moderately distended with mild trabeculation and possible small diverticula. Normal abdominal wall. There are diffuse degenerative changes of the visualized lumbar spine. Degenerative anterolisthesis of L4-L5 (grade 1). CT/Abdomen/Pelvis W IV Cont ONLY IMPRESSION: 1. Distal descending colon mild diverticulitis. No abscess or pneumoperitoneum. 2. Mild left hydronephrosis and hydroureter without obstructing cause seen. New since prior ultrasound. Recommend additional evaluation with either CT urogram or cystoscopy. 3. Bilateral peribronchial consolidation/infiltrates in the lung bases. 4. Elevated left hemidiaphragm Electronically Signed: Galdino Lubin MD (Brooks) at 17:11 EDT , Service support ,
--- NOTE | 2020-11-07 15:03 | EKG12_ITS ---
Test Reason : Blood Pressure : / mmHG Vent. Rate : 073 BPM Atrial Rate : 073 BPM P-R Int : 194 ms QRS Dur : 098 ms QT Int : 402 ms P-R-T Axes : 028 019 035 degrees QTc Int : 442 ms Normal sinus rhythm Normal ECG Confirmed by ISMAEL CORREA, CADY ([id number]), non linear editor ESMER MORGAN ([id number]) on 11/09/2020 1:42:16 PM Referred By: AMBER Confirmed By:CADY GUEVARA MD
[2020-11-07] MEDS: Ipratropium/Albuterol Sulfate 3 ML AMPUL.NEB INHALATION (15:20)
[2020-11-07] MEDS: Ondansetron 4 MG/2 ML Vial IV (15:30)
[2020-11-07] MEDS: MethylPREDNISolone 125 MG/2 ML Vial IV (15:30)
[2020-11-07 15:48] LABS: Absolute Lymphocyte Count 1.14 X10^3/uL (0.83-4.51); Absolute Neutrophil Count 8.3 X10^3/uL (2.0-7.7); Basophil# 0.07 X10^3/uL; Basophil% 0.6 % (0-1); Eosinophil# 0.26 X10^3/uL; Eosinophils% 2.4 % (0-5); Hemoglobin 15.7 g/dL (13.0-16.5); Lymphocyte # 1.14 X10^3/ul (4.0); Lymphocyte % 10.4 % (19-41); Mean Corp Hgb Conc 31.4 g/dL (32-36); Mean Corpuscular Hgb 28.8 pg (27.0-32.0); Mean Corpuscular Volume 91.6 fL (80-94); Mean Platelet Vol. 10.3 fl (6.2-12.0); Monocyte# 1.12 X10^3/uL; Monocyte% 10.3 % (0-10); NRBC Flagged by Analyzer 0 % (0-5); Neutrophil # 8.27 X10^3/uL (2.7-7.7); Neutrophil % 75.8 % (47-70); Platelet Count 348 K/mm3 (150-450); RBC Distribution Width CV 17.2 % (11.6-14.6); RBC Distribution Width SD 56.3 fl (35.1-43.9); Red Blood Count 5.46 M/mm3 (4.6-6.2); White Blood Count 10.9 K/mm3 (4.4-11.0)
--- NOTE | 2020-11-07 15:57 | ED.DCSUM_ITS ---
- ER Visit Summary Date of Service: 11/07/20 Chief Complaint: Constipation History of Present Illness: The patient is a 80 M who goes to the [facility]. Patient fell approximately month ago down 2 steps. He was here 2 weeks ago was placed on hydrocortisone. He is no longer taking this. He has not had a bowel movement for 5 days. Typically he goes daily. Caregiver gave him an enema this morning he is still not had a bowel movement. Patient has been nauseated and vomited 2-3 times today. No blood in his emesis. Patient denies any fever, chills, cough, or shortness of breath. He does smoke a pack per day. He denies a history of COPD. Is not get aerosols. He denies any sick contacts. He ate he does wear a mask when he goes out. He has not gotten the vaccine. Physical Examination: Vitals: 97.9, 116/63, 96, 20, 84% on room air which is hypoxic. General: Well-nourished and well-developed. Head: Normocephalic atraumatic. Neck: Supple, no lymphadenopathy. No JVD. Nontender. Cardiovascular: Regular rate and rhythm. 2 out of 6 systolic murmur. Respiratory: No respiratory distress. Poor air movement bilaterally. No appreciable wheezing. Abdominal: Soft, mild left lower quadrant tenderness to palpation, nondistended, normal bowel sounds. No guarding, rebound, or peritoneal signs. Back: Nontender. No vertebral tenderness. Extremities: Nontender, 2+ pitting edema lower extremities bilaterally. Skin: Normal color, no rash. Neurologic: Alert and oriented ?3. Cranial nerves II through XII are intact. Normal strength and sensation. Psych: Normal affect. Test Results: EKG is sinus at [address] changes. EKG sinus at [address] changes. CBC shows segmented neutrophils 76, monocytes 10, lymphocytes 10. Chem-7 shows a CO2 of 35, glucose 131, BUN 59, creatinine 1.71. LFTs show an albumin of 3.1, globin of 4.6, alk phos 134. AST is 14. Lipase is negative. Covid is negative. Lactic acid is 0.9. Clinical Impression(s) from Imaging Studies Abdomen/Pelvis CT 11/07/20 15:03 IMPRESSION: 1. Distal descending colon mild diverticulitis. No abscess or pneumoperitoneum. 2. Mild left hydronephrosis and hydroureter without obstructing cause seen. New since prior ultrasound. Recommend additional evaluation with either CT urogram or cystoscopy. 3. Bilateral peribronchial consolidation/infiltrates in the lung bases. 4. Elevated left hemidiaphragm Electronically Signed: Galdino Lubin MD (Brooks) at 17:11 EDT , Service support , Chest X-Ray 11/07/20 16:30 IMPRESSION: 1. Left more than right basilar infiltrates could represent atelectasis, edema or pneumonia. Electronically Signed: Galdino Lubin MD (Brooks) at 16:54 EDT , Service support , Emergency Department Course and Treatment: Patient had an IV placed. He was given Solu-Medrol and Zofran IV. He was given albuterol and Atrovent aerosols. Patient has both diverticulitis and pneumonia. He was given Levaquin to cover all the pneumonia and Flagyl to cover anaerobes for the diverticulitis as well. His pulse ox is 84% on room air at rest here. Treatment Plan: The patient was discussed with the hospitalist, Dr. Herrmann, who agrees that we can take care of the diverticulitis and pneumonia here. However, we do not have urology until November 16. She has the patient be transferred to a center with urology. Patient's asked for [facility]. He was discussed with Dr. Wells there who is accepted him in transfer. Disposition: Transferred in serious condition. Impression: 1. Pneumonia. 2. Hypoxia. 3. Diverticulitis. 4. Mild left hydronephrosis. 5. COPD. This note was generated with [employer] software. It may contain incorrect words, spelling, and punctuation that were not noted in review of the chart prior to signing ED Disposition - Plan for ED Patient: Referrals: [facility] Santana [Primary Care Provider] -
[2020-11-07 16:06] LABS: ALB/GLOB Ratio 0.7 RATIO (0.9-2.4); AST(SGOT) 14 U/L (15-37); Alanine Aminotransfer ALT/SGPT 17 U/L (16-61); Albumin, Serum 3.1 g/dL (3.2-5.0); Alkaline Phosphatase 134 U/L (45-117); Anion Gap 0 (5-15); BUN 59 mg/dL (7-18); BUN/Creat Ratio 34.5 RATIO (10-20); Calcium,Total 9.7 mg/dL (8.5-10.1); Chloride 105 mmol/L (98-107); Creatinine, Serum 1.71 mg/dL (0.70-1.30); EST Glomerular Filtration Rate 41 mL/min (>60); Est Glom Filt Rate - Afr Amer 50 mL/min (>60); Estimated Creatinine Clearance 32.78 ml/min; Globulin 4.6 g/dL (2.2-4.2); Glucose 131 mg/dL (74-106); Lipase 80 U/L (73-393); Protein, Total 7.7 g/dL (6.4-8.2); Sodium Level 140 mmol/L (136-145)
[2020-11-07 16:21] LABS: Lactic Acid 0.9 mmol/L (0.4-1.9)
--- NOTE | 2020-11-07 16:30 | RAD_ITS ---
STUDY: X-RAY CHEST REASON FOR EXAM: Male, 80 years old. Hypoxia TECHNIQUE: AP COMPARISON: None. FINDINGS: EKG leads project over the chest. Lungs are underexpanded. Parenchymal opacities in the left more than right lung base with some obscuration of the diaphragms. There is no demonstrated pleural abnormality. There is mild cardiac enlargement. Normal mediastinum and kathi. Normal visualized pulmonary arteries. There is atherosclerotic tortuosity of the aortic arch and descending thoracic aorta. No acute bony process. There is no demonstrated abnormality of the visualized soft tissue structures of the upper abdomen. RAD/Chest 1 View (Portable) IMPRESSION: 1. Left more than right basilar infiltrates could represent atelectasis, edema or pneumonia. Electronically Signed: Galdino Lubin MD ([place]oks) at 16:54 EDT , Service support ,
[2020-11-07] MEDS: levoFLOXacin IV 500 MG/100 ML BAG 100 MG IV (17:40)
[2020-11-07 21:41] LABS: Bedside Glucose 128 mg/dL (70-110)
--- NOTE | 2020-11-07 23:04 | ED.RN ---
[facility] CALLED WITH UPDATED ETA. DISPATCH STATES ARRIVAL SHOULD BE IN 75 MIN
[2020-11-08 00:18] VITALS: BP 130/69; PULSE 76; RESP 21; O2SAT 95
== END 2020-11-08 00:29 | disposition short-term general hospital (02) ==
LOC: ED 15:35
PROVIDERS: Emergency Provider Emergency Medicine
DX: J18.9 Pneumonia, unspecified organism (principal); R09.02 Hypoxemia; K57.92 Diverticulitis of intestine, part unspecified, without perforation or abscess without bleeding; N13.30 Unspecified hydronephrosis; J44.0 Chronic obstructive pulmonary disease with (acute) lower respiratory infection; F17.210 Nicotine dependence, cigarettes, uncomplicated; R01.1 Cardiac murmur, unspecified
CPT/HCPCS: 36415; 71045; 74177; 80053; 82962; 83605; 83690; 84484; 85025; 87040; 87426; 93005; 94640; 96365; 96367; 96375; 99285; J7040; J7050; Q9967; A4216; J2405